=== PATIENT | male | born 1970 | race Caucasian/White ===

== ENCOUNTER 2019-03-18 17:05 | Inpatient (IN) ==
[2019-03-18] MEDS ORDERED: PANTOPRAZOLE 40 MG VIAL IV STA (17:25)
[2019-03-18 17:38] LABS: Basophils % 0.2 % (0.0-0.8); Eosinophils # 0.1 10*3/uL (0.0-0.87); Eosinophils % 1.2 % (0.00-10.9); Hematocrit 23.6 VOL% (42.0-52.0); Hemoglobin 6.7 GM/DL (14.0-18.0); Immature Granulocytes % 0.6 %; Immature Granulocytes Absolute 0.06 #; Lymphocytes # 1.6 10*3/uL (1.4-4.0); Lymphocytes % 15.8 % (21.2-54.2); Mean Corpuscular HGB Conc 28.4 GM/DL (32-36); Mean Corpuscular Volume 68.4 FL (87-102); Mean Platelet Volume 10.3 FL (9.6-12.0); Monocytes % 7.6 % (1.7-12.7); Neutrophils % 74.6 % (38.7-73.9); Platelet Count 306 T/CUMM (130-400); Red Blood Count 3.45 MC/CUMM (3.8-5.5); Red Cell Distribution Width 19.8 % (9.3-17.3)
[2019-03-18 17:49] LABS: INR 1.1; PT Patient Result 11.9 SECS
[2019-03-18 18:06] LABS: Alanine Aminotransferase 14 U/L (16-61); Albumin 3.7 G/DL (3.4-5.0); Alkaline Phosphatase 105 U/L (45-117); Aspartate Amino Transferase 16 U/L (0-37); Bilirubin,Total < 0.39 MG/DL (0.2-1.0); Blood Urea Nitrogen 15 MG/DL (7-18); Calcium 9.6 MG/DL (8.5-10.1); Glucose 99 MG/DL (74-106); Osmolality,Calculated 283.1 MOS/KG (273-304); Total Protein 7.8 G/DL (6.4-8.3)
[2019-03-18] MEDS ORDERED: ACETAMINOPHEN 325 MG TABLET PO PRN (18:30)
[2019-03-18] MEDS ORDERED: SODIUM CHLORIDE 0.9% 1,000 ML IV PRN (18:30)
[2019-03-18] MEDS: PANTOPRAZOLE 40 MG TABLET PO SCH (20:43)
[2019-03-18 21:15] LABS: Anisocytosis 2+; Burr Cells 1+; Elliptocytes 1+; Hypochromasia 1+; Microcytosis 2+; Platelet Estimate Normal
[2019-03-18 21:16] LABS: Poikilocytosis 1+; Polychromasia 1+; Target Cells 1+
[2019-03-18] MEDS: BENZTROPINE 1 MG TABLET PO SCH (22:05)
[2019-03-18] MEDS: hydrOXYzine HCL 25 MG TABLET PO SCH (22:06)
[2019-03-18] MEDS: traZODone 50 MG TABLET PO SCH (22:06)
[2019-03-18] MEDS: busPIRone 15 MG TABLET PO SCH (22:06)
[2019-03-19] MEDS ORDERED: BISACODYL 5 MG TABLET ONE (07:54)
[2019-03-19 08:02] LABS: Hemoglobin 9.4 GM/DL (14.0-18.0)
[2019-03-19] MEDS: BENZTROPINE 1 MG TABLET PO SCH ×2 (08:27→22:09)
[2019-03-19] MEDS: SERTRALINE 100 MG TABLET PO SCH (08:27)
[2019-03-19] MEDS: busPIRone 15 MG TABLET PO SCH ×3 (08:27→22:09)
[2019-03-19] MEDS: BISACODYL 5 MG TABLET PO SCH ×2 (08:27→16:23)
[2019-03-19] MEDS: PANTOPRAZOLE 40 MG TABLET PO SCH ×2 (08:27→22:09)
[2019-03-19 09:58] LABS: % Iron Saturation 5.1 % (18-50)
[2019-03-19] MEDS ORDERED: BISACODYL 10 MG SUPP RECTAL PRN (13:10)
[2019-03-19] MEDS ORDERED: ALPRAZolam 0.25 MG TABLET PO PRN (13:11)
[2019-03-19 13:24] LABS: Hemoglobin 9.3 GM/DL (14.0-18.0)
[2019-03-19] MEDS ORDERED: POLYETHYLENE GLYCOL POWDER 255 GM BOTTLE PO ONE (18:00)
[2019-03-19 18:45] LABS: Hematocrit 35.7 VOL% (42.0-52.0); Hemoglobin 10.4 GM/DL (14.0-18.0)
[2019-03-19] MEDS ORDERED: MAGNESIUM CITRATE 300 ML BOTTLE PO ONE (21:00)
[2019-03-19] MEDS: traZODone 50 MG TABLET PO SCH (22:09)
[2019-03-19] MEDS: hydrOXYzine HCL 25 MG TABLET PO SCH (22:09)
[2019-03-20] MEDS: BISACODYL 5 MG TABLET PO SCH (00:35)
[2019-03-20 05:51] LABS: Basophils % 0.3 % (0.0-0.8); Eosinophils # 0.6 10*3/uL (0.0-0.87); Eosinophils % 10.5 % (0.00-10.9); Hematocrit 35.5 VOL% (42.0-52.0); Hemoglobin 10.1 GM/DL (14.0-18.0); Immature Granulocytes % 0.5 %; Immature Granulocytes Absolute 0.03 #; Lymphocytes # 1.8 10*3/uL (1.4-4.0); Lymphocytes % 29.9 % (21.2-54.2); Mean Corpuscular HGB Conc 28.5 GM/DL (32-36); Monocytes % 10.2 % (1.7-12.7); Neutrophils % 48.6 % (38.7-73.9); Platelet Count 427 T/CUMM (130-400)
[2019-03-20 06:03] LABS: Calcium 9.3 MG/DL (8.5-10.1)
[2019-03-20] MEDS: PANTOPRAZOLE 40 MG TABLET PO SCH (08:29)
[2019-03-20] MEDS: BENZTROPINE 1 MG TABLET PO SCH (08:29)
[2019-03-20] MEDS: busPIRone 15 MG TABLET PO SCH ×2 (08:29→16:27)
[2019-03-20] MEDS: SERTRALINE 100 MG TABLET PO SCH (08:30)
[2019-03-20] MEDS ORDERED: LIDOCAINE 2% 5 ML VIAL ONE (09:00)
[2019-03-20] MEDS ORDERED: PROPOFOL 200 MG/20 ML VIAL IV ONE (09:00)
[2019-03-20 16:14] VITALS: BP 161/93
== END 2019-03-20 18:45 | disposition home or self-care (01) | DRG 385 ==
LOC: EDUNIT# → N.ED 17:05 → N.EDINP 18:30 → N.TELES 19:44
PROVIDERS: ADMIT Internal Medicine; ATTEND Internal Medicine